=== PATIENT | female | born 1995 | race Caucasian/White ===

== ENCOUNTER 2018-06-23 12:05 | Outpatient (CLI) | payer OTHER ==
[2018-06-23] MEDS ORDERED: GADOPENTETATE DIMEGLUMINE 5 ML VIAL IVP ONE ×2 (12:32→13:59)
[2018-06-23] MEDS ORDERED: IOPAMIDOL-300 50 ML VIAL ONE (12:34)
[2018-06-23] MEDS ORDERED: BUFFERED LIDOCAINE 10 ML SYRINGE IU ONE (13:59)
[2018-06-23] MEDS ORDERED: IOPAMIDOL-300 50 ML VIAL PO ONE (13:59)
--- NOTE | 2018-06-23 14:20 | XRAY Report ---
Reason: SPRAIN OF CARPAL JOINT OF UNSPECIFIED WRIST, PAIN Procedure Date: 06/23/2018 Accession Number: [id number] / [id number] Procedure: FL - Arthrogram Needle Placement CPT Code: FULL RESULT: EXAM: RIGHT WRIST ARTHROGRAPHIC INJECTION WITH FLUOROSCOPIC GUIDANCE EXAM DATE: 06/23/2018 01:29 PM. CLINICAL HISTORY: Sprain of carpal joint of unspecified wrist, pain. COMPARISON: None. TECHNIQUE: The risks, benefits, and alternatives of the procedure were discussed with the patient. All questions were answered. Written and verbal consent were obtained. The radiocarpal joint was marked under fluoroscopy and prepped and draped in a sterile manner. Local anesthesia was performed with 1% lidocaine. A 25-gauge needle was then inserted into the radiocarpal joint. 2 mL of a solution containing 25% 1% lidocaine, 25% iodinated contrast, and a 1:200 dilution of gadolinium contrast in sterile saline was then injected. The needle was removed without immediate complication. Other: None. Fluoroscopy Time: 33 seconds. Number of Images: 3. FINDINGS: Bones and joints: No fracture or subluxation. Injection: Fluoroscopic images demonstrate needle placement and contrast in the radiocarpal joint. No contrast extravasation outside of the radiocarpal joint. IMPRESSION: Successful fluoroscopically guided arthrographic injection of the wrist. RADIA
== END 2018-06-23 12:06 | disposition home or self-care (01) ==
LOC: DI 12:05
PROVIDERS: ATTEND Orthopaedic Surgery
DX: S63.511A Sprain of carpal joint of right wrist, initial encounter (principal); M25.531 Pain in right wrist
CPT/HCPCS: 77002; Q9967

== ENCOUNTER 2019-09-07 05:50 | Day surgery (SDC) | payer OTHER ==
[2019-09-07] MEDS ORDERED: KETOROLAC 30 MG/ML VIAL IVP ONE (05:51)
[2019-09-07] MEDS ORDERED: ACETAMINOPHEN 1,000 MG/100 ML VIAL IV ONE (05:51)
[2019-09-07] MEDS ORDERED: MIDAZOLAM 2 MG/2 ML VIAL IVP ONE (05:51)
[2019-09-07] MEDS ORDERED: DEXAMETHASONE 4 MG/ML VIAL IVP ONE (05:51)
[2019-09-07] MEDS ORDERED: PROPOFOL 200 MG/20 ML VIAL IVP ONE (05:51)
[2019-09-07] MEDS ORDERED: GLYCOPYRROLATE 1 MG/5 ML VIAL IVP ONE (05:51)
[2019-09-07] MEDS ORDERED: CEFAZOLIN SODIUM IN 0.9 % NACL 2 GM/100 ML BAG IV ONE (06:31)
[2019-09-07 06:44] LABS: HCG UR QUAL NEGATIVE
[2019-09-07] MEDS ORDERED: BUPIVACAINE 0.25% PF 30 ML VIAL ONE (06:59)
[2019-09-07] MEDS ORDERED: LACTATED RINGERS 1,000 ML IV ONE ×2 (06:59→09:10)
--- NOTE | 2019-09-07 07:14 | ANESTHESIA ---
Pre-Anesthesia VS, & Labs - Diagnosis right carpal tunnel syndrome - Procedure right carpal tunnel release Vital Signs: Temp Pulse Resp BP Pulse Ox 36.4 C L 71 16 113/88 H 100 09/07/19 06:45 09/07/19 06:45 09/07/19 06:45 09/07/19 06:45 09/07/19 06:45 Height 5 ft 3 in Weight (kg) 85.28 kg - Is Patient ?: No Home Medications and Allergies Home Medications: Ambulatory Orders Gabapentin 800 mg PO TID 09/04/19 Meloxicam 7.5 mg PO 09/04/19 Gabapentin 800 mg PO TID 09/04/19 Meloxicam 7.5 mg PO 09/04/19 Allergies/Adverse Reactions: Allergies Allergy/AdvReac Type Severity Reaction Status Date / Time pineapple Allergy Edema Verified 09/04/19 14:32 Anes History & Medical History - Anesthetic History Anesthesia Complications: reports: No previous complications Family history of Anesthesia Complications: Denies Family history of Malignant Hyperthermia: Denies - Medical History Cardiovascular: reports: None Pulmonary: reports: None Gastrointestinal: reports: None Urinary: reports: None Neuro: reports: None Musculoskeletal: reports: Other Endocrine/Autoimmune: reports: None Blood Disorders: reports: None Skin: reports: None Smoking Status: Current every day smoker (vaping, every week "twice every three days") Psychosocial: reports: No issues indicated - Surgical History Orthopedic: Other (fasciatomy in 2017) Exam General: Alert, Oriented x3, Cooperative, No acute distress Dental: WNL Mouth Openin Fingerbreadth Neck Mobility: Normal Mallampati classification: II Thyromental Distance: 4-6 cm Respiratory: Lungs clear, Normal breath sounds, No respiratory distress, No accessory muscle use Cardiovascular: Regular rate, Normal S1, Normal S2, No murmurs Abdomen: Normal bowel sounds, Soft, No tenderness, No hepatospenomegaly, No masses Extremities: No clubbing, No cyanosis, No edema, Normal pulses, No tenderness/swelling Neurological: Normal gait, Normal speech, Strength at 5/5 X4 ext, Normal tone, Sensation intact, Cranial nerves 3-12 NL, Reflexes 2+ Mental/Cognitive Status: Alert/Oriented X3, Normal for patient Cognitive Status: Within normal limits Plan Anesthesia Type: General Consent for Procedure(s) Verified and Reviewed: Yes Code Status: Attempt Resuscitation ASA classification: 1-Healthy patient Is this case an emergency?: No
[2019-09-07] MEDS ORDERED: BUPIVACAINE 0.25% PF 30 ML VIAL SUBQ ONE ×4 (08:05→08:18)
[2019-09-07] MEDS ORDERED: oxyCODONE 5 MG TABLET PO PRN (08:28)
[2019-09-07] MEDS ORDERED: ONDANSETRON 4 MG/2 ML VIAL IVP PRN (08:28)
--- NOTE | 2019-09-07 08:33 | OPERATIVE REPORT ---
Operative Report - Other Other Information/Narrative: Date of Surgery: 07 September 2019 Pre-Op Diagnosis: Right Carpal tunnel syndrome Procedure: Right Open carpal tunnel release, revision Postop Diagnosis: Right Carpal tunnel syndrome Primary Surgeon: Pillo Horton Secondary Surgeon: None Complications: None Tourniquet Time: 12 minutes EBL: 1 cc Indication For Surgery: 24-year-old female who sustained a high pressure injury to the thumb and underwent volar fasciotomy many years ago. She continues to have pain in the forearm as well as numbness and tingling in the radial volar digits. Electrodiagnostic studies showed compression of the median nerve. I discussed with her that a carpal tunnel release was likely done at her first surgery and that she may develop some scar tissue causing additional compression. I also explained that her forearm pain would not be well explained by carpal tunnel syndrome. She desired to proceed with the understanding that she may have minimal benefit. The risks, benefits, and alternatives were discussed. Risks include pain, bleeding, infection, damage to nearby structures, numbness, pillar pain, lack of symptom relief, need for further surgery, DVT, PE, stroke, and . Written consent was obtained. The patient was met in the preoperative holding on the day of the procedure. Operative extremity was signed. Consent was verified. They desire to proceed. They were brought to the operating room and placed in the supine position. A well-padded forearm tourniquet was applied. They were prepped and draped in the standard fashion. A surgical timeout was held will be confirmed the patient procedure, identity, allergies, antibiotics, images and laterality. All were in agreement we proceeded. An Esmarch was used to exsanguinate the limb and the tourniquet was elevated to 250 mmHg. A 3cm incision was made in line with her prior incision which is more radial than my typical incision. I started that Allen's Cardinal line distally. Bipolar electrocautery was used at the skin edge. Sharp dissection was brought down through the palmar fascia and scar tissue. Retractors were placed. Additional deep scar tissue was identified and a knife was used to separate it. The contents of the carpal tunnel were seen in the median nerve was readily apparent within the wound. Long handled Metzenbaum scissors were then used to create a pocket just superficial to the transverse carpal ligament and a retractor was placed. I then used a long handled Metzenbaum with the tips pointed ulnarly to complete the release 2 cm into the antebrachial fascia. Retractors were then moved distally and I confirmed complete release in the appearance of fat in the palm. A freer elevator was used to confirm complete release both proximally and distally. There was significant scar tissue attached to the median nerve and so gentle neural lysis was performed taking care to look for all branches coming off the nerve. Once the neural lysis was complete the median nerve was much more freely mobile. The wound was packed with a moist gauze and the tourniquet was deflated. After holding for 3 minutes the gauze was removed and bleeding was coming from the skin edge. Bleeding was controlled with bipolar electrocautery. The wound was closed with 4-0 nylon in a horizontal mattress configuration. 5 cc of local anesthetic was placed. A sterile bulky dressing was applied. He was awakened and transferred to the recovery room.
[2019-09-07] MEDS: HYDROmorphone 0.5 MG/0.5 ML SYRINGE ONE ×2 (08:50→08:55)
[2019-09-07] MEDS: fentaNYL 100 MCG/2 ML VIAL ONE ×4 (09:02→09:16)
[2019-09-07] MEDS ORDERED: oxyCODONE 5 MG TABLET ONE (09:32)
[2019-09-07 10:08] VITALS: BP 100/66
== END 2019-09-07 05:51 | disposition home or self-care (01) ==
LOC: SDS 05:50
PROVIDERS: ATTEND Orthopaedic Surgery
PROC: 01N50ZZ Release Median Nerve, Open Approach (ICD-10-PCS; principal; 2019-09-07 07:30)
DX: G56.01 Carpal tunnel syndrome, right upper limb (principal); F17.290 Nicotine dependence, other tobacco product, uncomplicated; E66.01 Morbid (severe) obesity due to excess calories; Z68.33 Body mass index [BMI] 33.0-33.9, adult
CPT/HCPCS: 81025

== ENCOUNTER 2019-12-12 13:56 | Outpatient (CLI) | payer OTHER ==
[2019-12-12] MEDS ORDERED: GADOBUTROL 7.5 MMOL/7.5 ML VIAL ONE (14:11)
[2019-12-12] MEDS ORDERED: IOTHALAMATE MEGLUMINE 50 ML VIAL ONE (14:12)
[2019-12-12] MEDS ORDERED: BUFFERED LIDOCAINE 10 ML SYRINGE ONE (14:12)
[2019-12-12] MEDS: BUFFERED LIDOCAINE 10 ML SYRINGE IU ONE (15:21)
[2019-12-12] MEDS: IOTHALAMATE MEGLUMINE 50 ML VIAL IVP ONE (15:22)
[2019-12-12] MEDS: GADOBUTROL 7.5 MMOL/7.5 ML VIAL IVP ONE (15:23)
--- NOTE | 2019-12-12 15:38 | XRAY Report ---
Reason: INSTABILITY RT WRIST Procedure Date: 12/12/2019 Accession Number: [id number] / [id number] Procedure: FL - Arthrogram Needle Placement CPT Code: Final Report FULL RESULT: EXAM: RIGHT WRIST ARTHROGRAPHIC INJECTION WITH FLUOROSCOPIC GUIDANCE EXAM DATE: 12/12/2019 03:14 PM. CLINICAL HISTORY: Instability right wrist. COMPARISON: None. TECHNIQUE: The risks, benefits, and alternatives of the procedure were discussed with the patient. All questions were answered. Written and verbal consent were obtained. The radiocarpal joint was marked under fluoroscopy and prepped and draped in a sterile manner. Local anesthesia was performed with 1% lidocaine. A 25-gauge needle was then inserted into the radiocarpal joint. 2 mL of a solution containing 25% 1% lidocaine, 25% iodinated contrast, and a 1:200 dilution of gadolinium contrast in sterile saline was then injected. The needle was removed without immediate complication. Other: None. Fluoroscopy Time: 0.2 minutes. Number of Images: 8. FINDINGS: Bones and joints: Widening of the scapholunate interval is noted. Injection: Fluoroscopic images demonstrate needle placement and contrast in the radiocarpal joint. Contrast extravasation outside the radiocarpal joint is noted on initial injection, the needle is observed to be mobile during injection. Repositioning and subsequent contrast injection is confirmed within the radiocarpal joint. IMPRESSION: Successful fluoroscopically guided arthrographic injection of the wrist. RADIA
--- NOTE | 2019-12-12 16:11 | MRI Report ---
Reason: INSTABILITY RT WRIST Procedure Date: 12/12/2019 Accession Number: [id number] / [id number] Procedure: MRI - Arthrogram Wrist RT CPT Code: Final Report FULL RESULT: EXAM: RIGHT Wrist MRI Arthrogram With Contrast EXAM DATE: 12/12/2019 03:55 PM. CLINICAL HISTORY: Right wrist instability. Previous carpal tunnel release. COMPARISON: MRI ARTHROGRAM WRIST RT 06/23/2018 1:15 PM. TECHNIQUE: Multiplanar, multisequence T1-weighted and fluid-sensitive sequences of the wrist after an arthrographic injection of dilute gadolinium, dictated under a separate exam. Other: None. FINDINGS: Bones: Negative ulnar variance by approximately 2 mm. No acute fracture or bone lesions. Cartilage: The articular cartilage is unremarkable. The triangular fibrocartilage complex is unremarkable. Ligaments: The scapholunate and lunotriquetral ligaments are intact. The visualized other intrinsic, extrinsic and collateral ligaments are unremarkable. Tendons: The extensor compartments I through and flexor tendons are unremarkable. Musculature: No edema or fatty atrophy. Other: Postoperative changes at the flexor retinaculum from previous carpal tunnel release. Otherwise, the carpal tunnel is unremarkable. Guyon's canal is unremarkable. No ganglion cysts. The subcutaneous tissues are unremarkable. IMPRESSION: 1. Negative ulnar variance by approximately 2 mm. 2. No evidence of TFCC or ligament tear. 3. Previous carpal tunnel release. RADIA
== END 2019-12-12 13:57 | disposition home or self-care (01) ==
LOC: DI 13:56
PROVIDERS: ATTEND Orthopaedic Surgery
DX: M25.331 Other instability, right wrist (principal)
CPT/HCPCS: 25246; 73222; 77002; A9585; Q9961

== ENCOUNTER 2020-06-13 06:22 | Day surgery (SDC) | payer OTHER ==
[~2020-06-13 06:22] MED LIST: CEFAZOLIN SODIUM IN 0.9 % NACL 2 GM/100 ML BAG IV ONE
[2020-06-13 06:44] LABS: HCG UR QUAL NEGATIVE
[2020-06-13] MEDS ORDERED: LACTATED RINGERS 1,000 ML IV ONE ×3 (06:51→09:55)
[2020-06-13] MEDS ORDERED: fentaNYL 100 MCG/2 ML VIAL IVP ONE (07:15)
[2020-06-13] MEDS ORDERED: DEXAMETHASONE 4 MG/ML VIAL IVP ONE (07:15)
[2020-06-13] MEDS ORDERED: PROPOFOL 200 MG/20 ML VIAL IVP ONE (07:15)
[2020-06-13] MEDS ORDERED: ONDANSETRON 4 MG/2 ML VIAL IVP ONE (07:15)
[2020-06-13] MEDS ORDERED: KETOROLAC 30 MG/ML VIAL IVP ONE (07:15)
[2020-06-13] MEDS ORDERED: LIDOCAINE-MPF 2% 5 ML VIAL IM ONE (07:15)
[2020-06-13] MEDS ORDERED: BUPIVACAINE 0.25% PF 30 ML VIAL ONE (07:24)
[2020-06-13] MEDS ORDERED: BUPIVACAINE 0.25% PF 30 ML VIAL SUBQ ONE ×2 (07:56)
--- NOTE | 2020-06-13 08:00 | ANESTHESIA ---
Pre-Anesthesia VS, & Labs - Diagnosis RIght cubital tunnel syndrome - Procedure right ulnar nerve transposition Vital Signs: Temp Pulse Resp BP Pulse Ox 36.4 C L 79 18 124/86 H 99 06/13/20 06:30 06/13/20 06:30 06/13/20 06:30 06/13/20 06:30 06/13/20 06:30 Height 5 ft 3 in Weight (kg) 80.74 kg - Is Patient ?: No Home Medications and Allergies Home Medications: Ambulatory Orders Multivitamin 1 each PO 06/11/20 Naproxen [Naprosyn] 500 mg PO BID PRN 06/11/20 Gabapentin 800 mg PO TID 09/04/19 Multivitamin 1 each PO 06/11/20 Naproxen [Naprosyn] 500 mg PO BID PRN 06/11/20 Allergies/Adverse Reactions: Allergies Allergy/AdvReac Type Severity Reaction Status Date / Time pineapple Allergy Edema Verified 06/11/20 09:53 Anes History & Medical History - Anesthetic History Anesthesia Complications: reports: No previous complications Family history of Anesthesia Complications: Denies Family history of Malignant Hyperthermia: Denies - Medical History Cardiovascular: reports: None Pulmonary: reports: None Gastrointestinal: reports: None Urinary: reports: None Neuro: reports: None Musculoskeletal: reports: Other Endocrine/Autoimmune: reports: None Blood Disorders: reports: None Skin: reports: None Smoking Status: Current every day smoker (vaping, every week "twice every three days") - Surgical History Orthopedic: Other Exam General: Alert, Oriented x3, Cooperative, No acute distress Dental: WNL Mouth Openin Fingerbreadth Neck Mobility: Normal Mallampati classification: II Respiratory: Lungs clear, Normal breath sounds, No respiratory distress, No accessory muscle use Cardiovascular: Regular rate, Normal S1, Normal S2, No murmurs Abdomen: Normal bowel sounds, Soft, No tenderness, No hepatospenomegaly, No ma sses Extremities: No clubbing, No cyanosis, No edema, Normal pulses, No tenderness/swelling Neurological: Normal gait, Normal speech, Strength at 5/5 X4 ext, Normal tone, Sensation intact, Cranial nerves 3-12 NL, Reflexes 2+ Mental/Cognitive Status: Alert/Oriented X3, Normal for patient Plan Anesthesia Type: General Consent for Procedure(s) Verified and Reviewed: Yes Code Status: Attempt Resuscitation ASA classification: 2-Mild systemic disease Is this case an emergency?: No
[2020-06-13] MEDS ORDERED: NALOXONE 0.4 MG/ML VIAL IVP PRN (08:01)
[2020-06-13] MEDS ORDERED: diphenhydrAMINE INJ 50 MG/ML VIAL IVP PRN (08:01)
[2020-06-13] MEDS ORDERED: ONDANSETRON 4 MG/2 ML VIAL IVP PRN ×2 (08:01→09:01)
[2020-06-13] MEDS ORDERED: METOCLOPRAMIDE 10 MG/2 ML VIAL IVP PRN (08:01)
[2020-06-13] MEDS ORDERED: ACETAMINOPHEN 1,000 MG/100 ML 100 ML IV ONE (08:01)
[2020-06-13] MEDS ORDERED: ePHEDrine 50 MG/ML VIAL IVP PRN (08:01)
[2020-06-13] MEDS ORDERED: ATROPINE ABBOJECT 1 MG/10 ML SYRINGE IVP PRN (08:01)
[2020-06-13] MEDS ORDERED: LACTATED RINGERS 1,000 ML IV SCH (09:00)
[2020-06-13] MEDS ORDERED: oxyCODONE 5 MG TABLET PO PRN (09:01)
[2020-06-13] MEDS: fentaNYL 100 MCG/2 ML VIAL IVP PRN ×4 (09:04→10:00)
[2020-06-13] MEDS ORDERED: HYDROmorphone 1 MG/ML CARPUJECT ONE (09:09)
--- NOTE | 2020-06-13 09:10 | OPERATIVE REPORT ---
Operative Report - Other Other Information/Narrative: Date of Surgery: 13 June 2020 Pre-Op Diagnosis: Right cubital tunnel syndrome Procedure: Right cubital tunnel release Postop Diagnosis: Same Primary Surgeon: Pillo Horton Secondary Surgeon: Jagjit Shaffer Complications: None Tourniquet Time: 47 minutes at 200 mmHg EBL: 5 cc Findings: Irritable ulnar nerve Indication For Surgery: 5-year-old female with a history of a high pressure injection into the right thumb that was managed with urgent fasciotomies volarly and dorsally. This was many years ago. She is continued to have pain consistent with both median and ulnar nerve issues. I performed a repeat carpal tunnel release on that side which improved the symptoms in her median nerve distribution yet she continues to have pain and numbness in the ulnar nerve distribution. Although her nerve conduction studies did not show compression her continued level of symptoms were concerning. I discussed with her that I unsure whether this will be helpful but it something that would be worth trying as long as the risks were excepted. The risks, benefits, and alternatives were discussed. Risks include pain, bleeding, infection, damage to nearby structures to include nerves and blood vessels, numbness, lack of symptom relief, need for further surgery, DVT, PE, stroke, and . Written consent was obtained. Procedure in Detail: The patient was met in the pre-operative hold area on the day of the procedure. The operative extremity was signed and questions were answered. The patient was brought to the operating room and a general anesthetic was administered. Supine position was used and bony prominences were padded. Standard prepping and draping was performed. A sterile tourniquet was applied. A time out confirmed patient identification, laterality, procedure, allergies, antibiotics, and images. An Esmarch was used to exsanguinate the limb and the tourniquet was elevated to 200 mmHg. A 5 cm incision was made along the course of the ulnar nerve just posterior to the medial epicondyle. Scissor dissection was carried out and branches of the medial antebrachial cutaneous nerve were searched for but not identified. Scissor dissection was carried down to the cubital tunnel and it was opened just anterior to the attachment of the ligament on the olecranon. I took care to stay posterior to prevent future subluxation of the nerve. The ulnar nerve was identified and the cubital tunnel was dissected distally very carefully. I encountered the initial sensory branch to the capsule and the motor branches to the FCU and protected them. I sharply transected the fascia over the FCU to gain further access to the ulnar nerve as it passed deep into the muscle. blunt dissection was used to dissect the muscle and exposed the nerve further. I then released the fascia deep to the muscle and ensured the nerve was freely mobile distally without any compression points. I then moved proximal and followed the nerve up the medial arm a few centimeters taking care to protect any cutaneous branches. I freed the nerve proximally 5 cm from the medial epicondyle. I took care to leave as many veins as possible attached to the nerve. I then digitally palpated deep to the nerve an did not find any protruding osteo phytes. The course of the nerve was smooth and no bony resection was necessary. I then irrigated the wound copiously and took him through a full range of motion. The nerve had no compression points and remained stable in the groove. I then loosely approximated the fascia to the posterior soft tissues to provide additional support. I again moved her through a full range of motion and the nerve glided smoothly without instability or compression points. The wound was then closed in a layered fashion with 2-0 Vicryl in the dermis and running Monocryl in the skin. A sterile dressing was then applied and a bulky splint was placed with the elbow nearly fully extended. She was awakened and transferred to the recovery room Postoperative plan: Gentle range of motion from 0-2 weeks. Follow-up at 2 weeks to cut Monocryl suture ends and assess the wound. I will remove the splint at that time and advance range of motion. No strengthening until 6 weeks.
[2020-06-13] MEDS: HYDROmorphone 0.5 MG/0.5 ML SYRINGE IVP PRN ×6 (09:11→09:44)
--- NOTE | 2020-06-13 09:37 | ANESTHESIA POST OP EVALUATION ---
Anesthesia Post Eval - Post Anesthesia Eval Vitals: Last Vital Signs Temp 36 C L 06/13/20 08:53 Pulse 104 H 06/13/20 09:30 Resp 12 06/13/20 09:30 BP 127/97 H 06/13/20 09:30 Pulse Ox 95 06/13/20 09:30 CV Function Including HR & BP: positive: Stable Pain Control: positive: Satisfactory Nausea & Vomiting: positive: Negative Mental Status: positive: Patient Participates Respiratory Status: Airway Patent Hydration Status: Satisfactory
[2020-06-13] MEDS ORDERED: ONDANSETRON 4 MG/2 ML VIAL ONE (11:13)
[2020-06-13 11:29] VITALS: BP 119/70
== END 2020-06-13 06:23 | disposition home or self-care (01) ==
LOC: SDS 06:22
PROVIDERS: ATTEND Orthopaedic Surgery
DX: G56.21 Lesion of ulnar nerve, right upper limb (principal); F17.290 Nicotine dependence, other tobacco product, uncomplicated
CPT/HCPCS: 81025